=== PATIENT | male | born 1955 | race Caucasian/White ===

== ENCOUNTER 2025-08-07 10:00 | Outpatient (RCR) | payer MEDICARE, OTHER, SELFPAY | END 2025-08-10 08:59 | disposition home or self-care (01) | LOC: HO.CR 10:00 | PROVIDERS: Visit Provider Thoracic Surgery (Cardiothoracic Vascular Surgery) | DX: Z86.79 Personal history of other diseases of the circulatory system (principal); Z98.890 Other specified postprocedural states; Z51.89 Encounter for other specified aftercare | CPT/HCPCS: 93798 ==